=== PATIENT | female | born 1970 | race Caucasian/White ===

== ENCOUNTER 2020-11-06 17:34 | Emergency (ER) | payer OTHER ==
[~2020-11-06] VITALS: Ht 162.6 cm; Wt 81.7 kg
[2020-11-06] MEDS ORDERED: FLEXERIL PO (19:03)
[2020-11-06] MEDS ORDERED: NAPROSYN500 MG PO (19:03)
[2020-11-06 19:05] LABS: ABSOLUTE EOSINOPHILS 0.1 thou/uL (0.0-0.7); ABSOLUTE MONOCYTES 0.5 thou/uL (0.0-1.2); BASOPHILS 0.8 %; EOSINOPHILS 1.5 %; HEMATOCRIT 39.5 % (37.0-47.0); HEMOGLOBIN 12.8 gm/dL (12.0-15.0); LYMPHOCYTES 35.1 %; MCH 28.1 pg (26.0-34.0); MCHC 32.3 g/dL (28.0-37.0); MCV 86.9 fL (80.0-100.0); MONOCYTES 9.3 %; MPV 7.5 fl. (7.2-11.1); NUCLEATED RBCS 0 /100WBC; PLATELET COUNT* 305 thou/uL (150-400); POLYS 53.3 %; RBC 4.54 mil/uL (4.20-5.00); RDW-CV 13.9 % (10.5-14.5); WBC 5.6 thou/uL (4.0-11.0)
[2020-11-06 19:08] LABS: URINE BILIRUBIN NEGATIVE (Negative); URINE BLOOD NEGATIVE (Negative); URINE CLARITY CLEAR; URINE COLOR YELLOW; URINE GLUCOSE-RANDOM NEGATIVE (Negative); URINE KETONES NEGATIVE (Negative); URINE LEUKOCYTES-REFLEX NEGATIVE (Negative); URINE NITRITE-REFLEX NEGATIVE (Negative); URINE PROTEIN NEGATIVE (Negative); URINE SPECIFIC GRAVITY <= 1.005 (1.005-1.030); URINE UROBILINOGEN 0.2 E.U./dl (0.2-1.0)
[2020-11-06 19:10] LABS: CALCIUM 9.2 mg/dL (8.5-10.1); CREATININE 0.7 mg/dL (0.6-1.3); POTASSIUM 3.9 mmol/L (3.5-5.1)
[2020-11-06 19:15] LABS: ALBUMIN 4.2 g/dL (3.4-5.0); TOTAL BILIRUBIN 0.3 mg/dL (<0.1-1.0); TOTAL PROTEIN 8.2 g/dL (6.4-8.2)
[2020-11-06] MEDS ORDERED: CEFPODOXIME PR200 M1 PO (20:39)
[2020-11-06] MEDS ORDERED: NORCO5 PO (20:41)
[2020-11-06 22:22] VITALS: BP 112/80
== END 2020-11-06 22:25 | disposition home or self-care (01) ==
LOC: M.ERS 17:34
PROVIDERS: Nurse Practitioner Psychiatric/Mental Health
DX: N13.30 Unspecified hydronephrosis (principal); I10 Essential (primary) hypertension; Z88.5 Allergy status to narcotic agent; Z79.899 Other long term (current) drug therapy

== ENCOUNTER 2021-01-07 11:12 | Emergency (ER) | payer OTHER ==
[~2021-01-07] VITALS: Ht 160 cm; Wt 63.5 kg
[~2021-01-07 11:12] MED LIST: CEFPODOXIME PR200 M1 PO; FLEXERIL PO; NAPROSYN500 MG PO; NORCO5 PO
[2021-01-07 11:38] LABS: URINE BILIRUBIN NEGATIVE (Negative); URINE BLOOD NEGATIVE (Negative); URINE CLARITY CLEAR; URINE COLOR YELLOW; URINE GLUCOSE-RANDOM NEGATIVE (Negative); URINE KETONES NEGATIVE (Negative); URINE LEUKOCYTES-REFLEX 1+ (Negative); URINE NITRITE-REFLEX NEGATIVE (Negative); URINE PROTEIN NEGATIVE (Negative); URINE UROBILINOGEN 0.2 E.U./dl (0.2-1.0)
[2021-01-07 11:48] LABS: BACTERIA-REFLEX 1-9 Few /HPF (None Seen); CASTS None Seen /LPF (None Seen); CRYSTALS None Seen /LPF (None Seen); MUCUS 0-3 Light strn/LPF (None Seen); SQUAMOUS 0-3 Few /LPF (0-3); URINE RBC 0-2 Rare /HPF (0-2); URINE WBC-REFLEX 0-5 Rare /HPF (0-5)
[2021-01-07 12:59] LABS: ABSOLUTE EOSINOPHILS 0.1 thou/uL (0.0-0.7); ABSOLUTE LYMPHOCYTES 1.6 thou/uL (0.8-5.3); ABSOLUTE MONOCYTES 0.2 thou/uL (0.0-1.2); ABSOLUTE NEUTROPHILS 1.5 thou/uL (1.6-8.1); BASOPHILS 0.8 %; EOSINOPHILS 1.5 %; HEMATOCRIT 40.1 % (37.0-47.0); HEMOGLOBIN 13.3 gm/dL (12.0-15.0); LYMPHOCYTES 47.5 %; MCH 29.3 pg (26.0-34.0); MCHC 33.2 g/dL (28.0-37.0); MCV 88.1 fL (80.0-100.0); MONOCYTES 6.9 %; MPV 7.4 fl. (7.2-11.1); NUCLEATED RBCS 0 /100WBC; PLATELET COUNT* 300 thou/uL (150-400); POLYS 43.3 %; RBC 4.56 mil/uL (4.20-5.00); RDW-CV 13.5 % (10.5-14.5); WBC 3.5 thou/uL (4.0-11.0)
[2021-01-07 13:07] LABS: CALCIUM 8.7 mg/dL (8.5-10.1); CREATININE 0.7 mg/dL (0.6-1.3); POTASSIUM 4.3 mmol/L (3.5-5.1)
[2021-01-07 13:11] LABS: TOTAL BILIRUBIN 0.3 mg/dL (<0.1-1.0); TOTAL PROTEIN 7.7 g/dL (6.4-8.2)
[2021-01-07] MEDS ORDERED: HYDROCODON-ACE1 EAC7 PO (13:43)
[2021-01-07] MEDS ORDERED: FLEXERIL PO (13:49)
[2021-01-07 14:12] VITALS: BP 120/64
== END 2021-01-07 14:13 | disposition home or self-care (01) ==
LOC: M.ERS 11:12
PROVIDERS: Nurse Practitioner Family
DX: R10.31 Right lower quadrant pain (principal); R10.32 Left lower quadrant pain; I10 Essential (primary) hypertension; Z88.5 Allergy status to narcotic agent